=== PATIENT | male | born 1970 | race Hispanic/Latino ===

== ENCOUNTER 2023-09-05 07:30 | Inpatient (IN) | payer OTHER ==
[2023-09-05] MEDS ORDERED: Sodium Chloride 0.9% 100 ML ONE (07:56)
[2023-09-05] MEDS ORDERED: Ibuprofen 200 MG TAB ONE (07:56)
[2023-09-05] MEDS ORDERED: cefTRIAXone (ROCEPHIN) 1 GM VIAL ONE (07:56)
[2023-09-05 08:04] LABS: #Basophils Less than 0.03 10x3/uL (0.0-0.2); #Eosinphils Less than 0.03 10x3/uL (0.0-0.7); %Basophils 0.2 % (0.0-1.0); %Eosinophils 0.1 % (0.0-10.0); %Lymphocytes 5.9 % (21.0-51.0); %Monocytes 8.1 % (0.0-10.0); %Neutrophils 84.6 % (42.0-75.0); Hematocrit 24.7 % (42.0-52.0); Hemoglobin 8.2 g/dL (14.0-18.0); Mean Corpuscular HGB CONC 33.2 g/dL (32.0-36.0); Mean Corpuscular Hemoglobin 31.5 pg (27.0-31.0); Mean Platelet Volume 11.4 fL (7.4-10.4); Platelet Count 59 10x3/uL (130-400); RBC Distribution Width 15.9 % (11.5-14.5)
[2023-09-05 08:13] LABS: INR-International Normal Ratio 1.6; Prothrombin Time 18.9 sec (12.0-14.7)
[2023-09-05 08:14] LABS: PTT 42.6 sec (22.9-36.1)
[2023-09-05 08:19] LABS: ALT (SGPT) 22 U/L (8-55); AST (SGOT) 35 U/L (5-34); Albumin 2.3 g/dL (3.5-5.0); Alkaline Phosphatase 43 U/L (40-110); Anion Gap 12 mmol/L (10-20); BUN (Urea Nitrogen) 12 mg/dL (8.4-25.7); Bilirubin, Total 2.8 mg/dL (0.2-1.2); Calc. Creatinine Clearance 0 mL/min (70-130); Calcium 7.3 mg/dL (7.8-10.44); Carbon Dioxide 18 mmol/L (22-29); Chloride 104 mmol/L (98-107); Estimated GFR 105; Globulin 3.5 g/dL (2.4-3.5); Glucose 103 mg/dL (70-105); Potassium 3.5 mmol/L (3.5-5.1); Protein, Total 5.8 g/dL (6.0-8.3); Sodium 130 mmol/L (136-145)
[2023-09-05 08:43] LABS: Platelet Adequacy Comment Significant Decrease; RBC Morphology Within Normal Limits
[2023-09-05] MEDS ORDERED: Iopamidol-370 76% 500 ML MDV (1 ML CHARGE) ONE (10:32)
[2023-09-05 10:43] LABS: Lactic Acid 1.1 mmol/L (0.5-2.2)
[2023-09-05] MEDS ORDERED: Vancomycin 1 GM/200 ML (FROZEN) BAG ONE (10:44)
[2023-09-05] MEDS: Albumin 25% 25 GM (100 mL) BOT IVPB SCH (13:17)
[2023-09-05] MEDS: Piperacillin/Tazobactam 3.375 GM in Sodium Chloride 0.9% 100 ML IVPB SCH ×2 (13:17→16:55)
[2023-09-05] MEDS ORDERED: Piperacillin/Tazobactam 4.5 GM in Sodium Chloride 0.9% 100 ML IVPB SCH (18:00)
[2023-09-05] MEDS: Acetaminophen 325 MG TAB PO PRN (19:41)
[2023-09-05] MEDS: traMADol HCl 50 MG TAB PO PRN (20:58)
[2023-09-05] MEDS ORDERED: Vancomycin 1 GM in Sodium Chloride 0.9% 250 ML 250 ML IVPB SCH (21:00)
[2023-09-05] MEDS: Vancomycin (BATCH) 1.5 GM in Premix 1 BAG IVPB SCH (22:42)
[2023-09-06] MEDS: Ketorolac Tromethamine 30 MG (1 mL) VIAL IVP SCH ×2 (04:07→17:52)
[2023-09-06] MEDS ORDERED: NOREPINEPHRINE 8 MG/250 ML-D5W 250 ML IVPB SCH (04:30)
[2023-09-06 04:49] LABS: Vancomycin, Random 12.3 ug/mL (See Comment)
[2023-09-06 04:52] LABS: Anion Gap 9 mmol/L (10-20); BUN (Urea Nitrogen) 12 mg/dL (8.4-25.7); Calc. Creatinine Clearance 129 mL/min (70-130); Calcium 7.1 mg/dL (7.8-10.44); Carbon Dioxide 17 mmol/L (22-29); Chloride 109 mmol/L (98-107); Estimated GFR 103; Glucose 136 mg/dL (70-105); Magnesium 1.8 mg/dL (1.6-2.6); Potassium 3.3 mmol/L (3.5-5.1); Sodium 132 mmol/L (136-145)
[2023-09-06 05:00] VITALS: BMI 35.9
[2023-09-06] MEDS: Albumin 25% 25 GM (100 mL) BOT IVPB SCH (05:01)
[2023-09-06] MEDS: Hydrocortisone Sod Succ/PF 100 mg/2 ml Vial IVP SCH ×2 (05:04→11:55)
[2023-09-06 05:10] LABS: #Basophils Less than 0.03 10x3/uL (0.0-0.2); %Basophils 0.1 % (0.0-1.0); %Eosinophils 0.5 % (0.0-10.0); %Lymphocytes 4.8 % (21.0-51.0); %Monocytes 7.4 % (0.0-10.0); %Neutrophils 85.7 % (42.0-75.0); Hematocrit 22.3 % (42.0-52.0); Hemoglobin 7.1 g/dL (14.0-18.0); Mean Corpuscular HGB CONC 31.8 g/dL (32.0-36.0); Mean Corpuscular Hemoglobin 30.7 pg (27.0-31.0); Mean Corpuscular Volume 96.5 fL (78.0-98.0); Mean Platelet Volume 10.6 fL (7.4-10.4); Platelet Count 52 10x3/uL (130-400); RBC Distribution Width 16.1 % (11.5-14.5); Red Blood Cell (RBC) Count 2.31 mill/uL (4.70-6.10)
[2023-09-06 05:18] LABS: Hemoglobin A1c 5.1 % (4.0-6.0)
[2023-09-06] MEDS: Lactated Ringer's 1,000 ML IV SCH (06:22)
[2023-09-06] MEDS: Magnesium 2 GM/50 ML(in water) 2 GM in Premix 1 BAG IVPB SCH (06:25)
[2023-09-06] MEDS: Sodium Bicarb 50 mEq/50 ML VIAL IVP SCH (06:26)
[2023-09-06] MEDS: Calcium Chloride 13.6 MEQ in Sodium Chloride 0.9% 100 ML IVPB SCH (06:50)
[2023-09-06] MEDS ORDERED: Electrolyte Replacement Protocol 1 EACH FS SCH (07:00)
[2023-09-06] MEDS ORDERED: Electrolyte Replacement Protocol FS PRN (07:15)
[2023-09-06] MEDS: Potassium Chloride 20 MEQ in Premix 1 BAG IVPB SCH (07:22)
[2023-09-06] MEDS: Pantoprazole 40 MG VIAL IVP SCH (08:17)
[2023-09-06] MEDS ORDERED: Enoxaparin 40 MG (0.4 mL) SYRINGE SC SCH (09:00)
[2023-09-06] MEDS: Sodium Chloride 0.9% 500 ML IV SCH (09:04)
[2023-09-06] MEDS ORDERED: Bupivacaine 0.25% HCL 30 ML VIAL ONE (15:27)
[2023-09-06] MEDS ORDERED: EPINEPHrine 1 MG/ML VIAL ONE (15:27)
[2023-09-06] MEDS ORDERED: fentaNYL PF 100 MCG/2 ML SYRINGE ONE (15:31)
[2023-09-06] MEDS ORDERED: PROPOFOL 20 ML ONE (15:32)
[2023-09-06] MEDS ORDERED: Rocuronium Bromide 10 MG/ML (10ML VIAL) ONE (15:33)
[2023-09-06] MEDS ORDERED: Lidocaine 1% PF 5 ML VIAL ONE (15:33)
[2023-09-06] MEDS ORDERED: CEFAZOLIN 1 GM VIAL ONE (16:43)
[2023-09-06] MEDS ORDERED: Sterile Water 20 ML ONE (16:43)
[2023-09-06] MEDS ORDERED: Ondansetron PF 4 MG/2 ML Vial ONE (16:54)
[2023-09-06] MEDS ORDERED: NEOSTIGMINE 3 MG/3 ML SYR 3 MG/3 ML SYRINGE ONE (16:54)
[2023-09-06] MEDS ORDERED: Glycopyrrolate 0.2 MG/ML 5 ML SYRINGE ONE (16:54)
[2023-09-06] MEDS ORDERED: Calcium Carbonate 500 MG ChewTAB PO PRN (17:15)
[2023-09-06] MEDS ORDERED: Dextrose 50% Abboject 50 ML SYRINGE SLOW IVP PRN (17:15)
[2023-09-06] MEDS ORDERED: Glucagon 1 MG/ML KIT IM PRN (17:15)
[2023-09-06] MEDS ORDERED: Ondansetron PF 4 MG/2 ML Vial IVP PRN (17:15)
[2023-09-06] MEDS ORDERED: Mag-Al 1200 mg/1200 mg/30 ML UDCUP PO PRN (17:15)
[2023-09-06] MEDS ORDERED: Dextrose 5% in Water 1,000 ML IV PRN (17:15)
[2023-09-06] MEDS: Vancomycin (BATCH) 2 GM in Premix 1 BAG IVPB SCH (17:30)
[2023-09-06] MEDS: D5 1/2 NS w/20 mEq KCL 1,000 ML IV SCH (18:39)
[2023-09-06] MEDS: Docusate 100 MG CAP PO SCH (21:05)
[2023-09-06] MEDS: Famotidine 20 MG TAB PO SCH (21:05)
[2023-09-06] MEDS: Enoxaparin 30 MG (0.3 mL) SYRINGE SC SCH (21:06)
[2023-09-07 04:20] LABS: #Basophils Less than 0.03 10x3/uL (0.0-0.2); #Eosinphils Less than 0.03 10x3/uL (0.0-0.7); %Basophils 0.1 % (0.0-1.0); %Lymphocytes 3.9 % (21.0-51.0); %Monocytes 3.7 % (0.0-10.0); %Neutrophils 90.7 % (42.0-75.0); Hematocrit 26.6 % (42.0-52.0); Hemoglobin 8.8 g/dL (14.0-18.0); Mean Corpuscular HGB CONC 33.1 g/dL (32.0-36.0); Mean Corpuscular Hemoglobin 31.2 pg (27.0-31.0); Mean Corpuscular Volume 94.3 fL (78.0-98.0); Mean Platelet Volume 11.5 fL (7.4-10.4); Platelet Count 70 10x3/uL (130-400); RBC Distribution Width 16.3 % (11.5-14.5); Red Blood Cell (RBC) Count 2.82 mill/uL (4.70-6.10)
[2023-09-07 04:31] LABS: INR-International Normal Ratio 1.7; Prothrombin Time 19.8 sec (12.0-14.7)
[2023-09-07 04:32] LABS: PTT 36.8 sec (22.9-36.1)
[2023-09-07 04:33] LABS: Vancomycin, Random 18.2 ug/mL (See Comment)
[2023-09-07 04:36] LABS: ALT (SGPT) 21 U/L (8-55); AST (SGOT) 28 U/L (5-34); Albumin 2.1 g/dL (3.5-5.0); Alkaline Phosphatase 49 U/L (40-110); Anion Gap 11 mmol/L (10-20); BUN (Urea Nitrogen) 18 mg/dL (8.4-25.7); Bilirubin, Total 1.3 mg/dL (0.2-1.2); Calc. Creatinine Clearance 172 mL/min (70-130); Calcium 7.4 mg/dL (7.8-10.44); Carbon Dioxide 19 mmol/L (22-29); Chloride 110 mmol/L (98-107); Estimated GFR 105; Globulin 3.1 g/dL (2.4-3.5); Glucose 208 mg/dL (70-105); Magnesium 2.3 mg/dL (1.6-2.6); Potassium 3.9 mmol/L (3.5-5.1); Protein, Total 5.2 g/dL (6.0-8.3); Sodium 136 mmol/L (136-145)
[2023-09-07] MEDS: Lactated Ringer's 1,000 ML IV SCH (07:56)
[2023-09-08 05:26] LABS: #Basophils Less than 0.03 10x3/uL (0.0-0.2); %Basophils 0.1 % (0.0-1.0); %Eosinophils 0.4 % (0.0-10.0); %Monocytes 6.1 % (0.0-10.0); %Neutrophils 83.2 % (42.0-75.0); Hematocrit 26.1 % (42.0-52.0); Hemoglobin 8.5 g/dL (14.0-18.0); Mean Corpuscular HGB CONC 32.6 g/dL (32.0-36.0); Mean Corpuscular Volume 92.2 fL (78.0-98.0); Mean Platelet Volume 11.5 fL (7.4-10.4); Platelet Count 90 10x3/uL (130-400); RBC Distribution Width 16.5 % (11.5-14.5); Red Blood Cell (RBC) Count 2.83 mill/uL (4.70-6.10)
[2023-09-08 05:34] LABS: Anion Gap 10 mmol/L (10-20); BUN (Urea Nitrogen) 20 mg/dL (8.4-25.7); Calc. Creatinine Clearance 180 mL/min (70-130); Calcium 7.5 mg/dL (7.8-10.44); Carbon Dioxide 22 mmol/L (22-29); Chloride 111 mmol/L (98-107); Estimated GFR 105; Glucose 104 mg/dL (70-105); Potassium 3.5 mmol/L (3.5-5.1); Sodium 139 mmol/L (136-145)
[2023-09-08] MEDS: Potassium Chloride 20 MEQ TAB PO SCH (08:40)
[2023-09-08] MEDS: Clindamycin 150 MG CAP PO SCH (16:57)
[2023-09-09 06:10] LABS: #Basophils Less than 0.03 10x3/uL (0.0-0.2); %Basophils 0.2 % (0.0-1.0); %Eosinophils 1.2 % (0.0-10.0); %Lymphocytes 11.7 % (21.0-51.0); %Neutrophils 76.2 % (42.0-75.0); Hematocrit 25.7 % (42.0-52.0); Hemoglobin 8.5 g/dL (14.0-18.0); Mean Corpuscular HGB CONC 33.1 g/dL (32.0-36.0); Mean Corpuscular Hemoglobin 31.3 pg (27.0-31.0); Mean Corpuscular Volume 94.5 fL (78.0-98.0); Platelet Count 93 10x3/uL (130-400); Red Blood Cell (RBC) Count 2.72 mill/uL (4.70-6.10)
[2023-09-09 11:26] VITALS: BMI 37.5
[2023-09-09] MEDS: HYDROcodone/Acetaminophen 10/325 mg Tablet PO PRN (16:21)
[2023-09-09] MEDS: Enoxaparin 40 MG (0.4 mL) SYRINGE SC SCH (20:28)
[2023-09-10 07:02] LABS: Vancomycin, Random 55.5 ug/mL (See Comment)
[2023-09-10 13:19] LABS: Vancomycin, Random 47.4 ug/mL (See Comment)
[2023-09-10] MEDS ORDERED: Vancomycin (BATCH) 2 GM in Premix 1 BAG IVPB SCH (14:00)
[2023-09-10] MEDS: Furosemide 40 MG TAB PO SCH (17:59)
[2023-09-10] MEDS: Clindamycin 150 MG CAP PO SCH (17:59)
[2023-09-11 13:48] LABS: Anion Gap 10 mmol/L (10-20); BUN (Urea Nitrogen) 16 mg/dL (8.4-25.7); Calc. Creatinine Clearance 81 mL/min (70-130); Calcium 7.7 mg/dL (7.8-10.44); Carbon Dioxide 22 mmol/L (22-29); Chloride 110 mmol/L (98-107); Estimated GFR 44; Glucose 104 mg/dL (70-105); Potassium 4.2 mmol/L (3.5-5.1); Sodium 138 mmol/L (136-145)
[2023-09-12 05:31] LABS: Anion Gap 9 mmol/L (10-20); BUN (Urea Nitrogen) 16 mg/dL (8.4-25.7); Calc. Creatinine Clearance 74 mL/min (70-130); Calcium 7.5 mg/dL (7.8-10.44); Carbon Dioxide 21 mmol/L (22-29); Chloride 112 mmol/L (98-107); Estimated GFR 39; Glucose 92 mg/dL (70-105); Potassium 4.4 mmol/L (3.5-5.1); Sodium 138 mmol/L (136-145)
[2023-09-12] MEDS: Sodium Chloride 0.9% 1,000 ML IV SCH (11:52)
[2023-09-12] MEDS: Albumin 25% 25 GM (100 mL) BOT IVPB SCH (11:52)
[2023-09-12 13:29] LABS: Creatinine, Urine 79.41 mg/dL (63-166)
[2023-09-12] MEDS: Doxycycline 100 MG CAP PO SCH (21:53)
[2023-09-13 05:54] LABS: Anion Gap 10 mmol/L (10-20); BUN (Urea Nitrogen) 15 mg/dL (8.4-25.7); Calc. Creatinine Clearance 73 mL/min (70-130); Calcium 7.8 mg/dL (7.8-10.44); Carbon Dioxide 21 mmol/L (22-29); Chloride 113 mmol/L (98-107); Estimated GFR 39; Glucose 88 mg/dL (70-105); Potassium 4.1 mmol/L (3.5-5.1); Sodium 140 mmol/L (136-145)
[2023-09-14 06:49] LABS: Anion Gap 10 mmol/L (10-20); BUN (Urea Nitrogen) 14 mg/dL (8.4-25.7); Calc. Creatinine Clearance 78 mL/min (70-130); Calcium 8.1 mg/dL (7.8-10.44); Carbon Dioxide 22 mmol/L (22-29); Chloride 111 mmol/L (98-107); Estimated GFR 42; Glucose 90 mg/dL (70-105); Sodium 139 mmol/L (136-145)
[2023-09-15 08:28] LABS: Anion Gap 13 mmol/L (10-20); BUN (Urea Nitrogen) 12 mg/dL (8.4-25.7); Calc. Creatinine Clearance 81 mL/min (70-130); Calcium 8.4 mg/dL (7.8-10.44); Carbon Dioxide 22 mmol/L (22-29); Chloride 111 mmol/L (98-107); Estimated GFR 43; Glucose 92 mg/dL (70-105); Potassium 4.1 mmol/L (3.5-5.1); Sodium 142 mmol/L (136-145)
[2023-09-15 14:11] VITALS: BP 119/75; TEMP 98.5
== END 2023-09-15 14:30 | DRG 871 ==
LOC: EEVIPCON 07:30 → ERS 07:30 → ERHOLD 11:13 → MSONC 12:31 → CCU 09-06 04:30 → SJJU 09-07 11:12
PROVIDERS: ADMIT Hospitalist; ATTEND Internal Medicine
PROC: 30233J1 Transfusion of Nonautologous Serum Albumin into Peripheral Vein, Percutaneous Approach (ICD-10-PCS; 2023-09-05)
PROC: 0J9C0ZZ Drainage of Pelvic Region Subcutaneous Tissue and Fascia, Open Approach (ICD-10-PCS; principal; 2023-09-06)
PROC: 3E03329 Introduction of Other Anti-infective into Peripheral Vein, Percutaneous Approach (ICD-10-PCS; 2023-09-06)
DX: A41.02 Sepsis due to Methicillin resistant Staphylococcus aureus (principal); R65.21 Severe sepsis with septic shock; L03.116 Cellulitis of left lower limb; L03.314 Cellulitis of groin; E87.20 Acidosis, unspecified; E87.1 Hypo-osmolality and hyponatremia; N17.9 Acute kidney failure, unspecified; K76.6 Portal hypertension; L02.214 Cutaneous abscess of groin; B19.20 Unspecified viral hepatitis C without hepatic coma; K74.60 Unspecified cirrhosis of liver; R19.00 Intra-abdominal and pelvic swelling, mass and lump, unspecified site; I95.9 Hypotension, unspecified; E87.6 Hypokalemia; D69.6 Thrombocytopenia, unspecified; N18.2 Chronic kidney disease, stage 2 (mild); D63.1 Anemia in chronic kidney disease; E88.09 Other disorders of plasma-protein metabolism, not elsewhere classified; E83.52 Hypercalcemia
CPT/HCPCS: 36415; 36416; 36430; 74177; 80048; 80053; 80202; 82565; 82570; 83036; 83605; 83735; 84300; 85025; 85610; 85730; 86850; 86900; 86901; 87040; 87070; 87077; 87186; 87205; 89190; 93005; 94760; 96374; 96375; 97139; C9113; J0171; J0665; J0690; J0696; J1650; J1720; J1885; J2405; J2543; J2704; J3370; J3370-JW; J3475; J3480; J3490; J7050; J7120; P9016; P9047; Q9967